=== PATIENT | male | born 1955 | race Caucasian/White ===

== ENCOUNTER → 2021-09-15 19:10 | Outpatient (CLI) | payer MEDICARE, OTHER, SELFPAY ==
--- NOTE | 2021-09-15 19:15 | DI.MRI.S_ITS ---
PROCEDURE: MR CERVICAL SPINE WO CON INDICATIONS: Left-sided axial neck pain TECHNIQUE: Noncontrast sagittal T1 spin echo and T2 fast spin echo, sagittal STIR, foraminal oblique sagittal T2 fast spin echo, and axial gradient echo or T2 fast spin echo through the cervical spine. COMPARISON: None. FINDINGS: Image quality: Excellent. Alignment and Curvature: There is normal bony alignment. Bone Marrow: Marrow demonstrates normal overall signal. Spinal Cord: Visualized spinal cord has normal size and signal. No cerebellar tonsillar herniation. Regional Soft Tissues: No paravertebral masses. Prevertebral soft tissues are normal in thickness. C2-C3: No spinal canal or neural foraminal stenosis. C3-C4: Moderate bilateral neural foraminal stenosis due to facet and uncovertebral hypertrophy. Posterior disc-osteophyte complex flattens the ventral cord with overall mild spinal canal stenosis. C4-C5: Posterior disc-osteophyte complex flattens the ventral cord producing mild spinal canal stenosis. There may be ossification of posterior longitudinal ligament at this level. Facet and uncovertebral hypertrophy contribute to moderate right and mild left neural foraminal stenosis. C5-C6: Severe right and mild left neural foraminal stenosis due to facet and uncovertebral hypertrophy. Suspected impingement of the exiting right C6 nerve root. Posterior disc-osteophyte complex produces mild spinal canal stenosis with flattening of the ventral cord. C6-C7: No spinal canal stenosis. Mild bilateral neural foraminal stenosis due to facet and uncovertebral hypertrophy. C7-T1: No spinal canal or neural foraminal stenosis. IMPRESSION: Multilevel multifactorial degenerative changes as described above. Correlate for any corresponding radicular symptoms. Dictated by: Bobby Reeves M.D. on 09/16/2021 at 16:14 Approved by: Bobby Reeves M.D. on 09/16/2021 at 16:22
== END ==
PROVIDERS: PCP Family Medicine; Referring Provider Physical Medicine & Rehabilitation; Visit Provider Physical Medicine & Rehabilitation
DX: M47.812 Spondylosis without myelopathy or radiculopathy, cervical region (principal)
CPT/HCPCS: 72141